=== PATIENT | male | born 1975 | race Caucasian/White ===

== ENCOUNTER 2018-10-28 05:33 | Day surgery (SDC) | payer BC, OTHER ==
[~2018-10-28] VITALS: Ht 182.9 cm; Wt 83.9 kg
--- NOTE | ~2018-10-28 | O ---
[facility] [place] [address] [place] [address] OPERATIVE REPORT Name: AROLDO PIERCE Room #: 150-1 [facility] M.R.#: [id number] Admission: 10/28/18 ������������������ Attend Phys: Darion Root MD Discharge: ������������������ Date of : 71 Report #: [id number] THIS REPORT FOR: //name// CC: Basim Root DATE OF SERVICE: 10/28/[address] Darion Root and Dr. Basim Zavala. PREOPERATIVE DIAGNOSIS: Right inguinal hernia. POSTOPERATIVE DIAGNOSIS: Right inguinal hernia. PROCEDURE: Right inguinal hernia repair with Prolene hernia system mesh. SURGEON: Darion Root MD. ANESTHESIA: Local IV sedation. DESCRIPTION OF PROCEDURE: The patient was brought to the operating room and placed on operative table in the supine position. Sequential compression devices were in place for DVT prophylaxis. The patient underwent IV sedation. The right inguinal area was prepped and draped in a sterile fashion. Skin and subcutaneous tissue were then infiltrated with 0.5% Marcaine and 1% Xylocaine in a 1:1 mixture. Right inguinal skin incision was then performed using #10 scalpel blade. Hemostasis obtained using electrocautery as well as clamps and 2-0 chromic ties. Dissection was carried down through subcutaneous tissue, the external oblique fascia, which was then incised with a knife and opened with the Metzenbaum scissors. The ilioinguinal nerve was identified, dissected free, injected with a local mixture and preserved. Cord was then elevated and held in place with a [employer] drain. Cremasteric muscle fibers were then split in the direction of their fibers using clamp and electrocautery. The indirect inguinal hernia sac was identified, dissected free and reduced back into the preperitoneal space in the internal ring. The floor was inspected and found to be intact. A large Prolene hernia system mesh was then inserted through the internal ring and the preperitoneal mesh was then deployed into the preperitoneal space. Connector was left in the internal ring and the overlay patch was then deployed into the inguinal canal. The mesh was secured at the pubic tubercle superiorly and at the connector using simple interrupted 2-0 Vicryl sutures. The mesh was split and wrapped around the cord, secured to the inguinal ligament with simple interrupted 2-0 Vicryl suture. The cord and ilioinguinal nerve were then returned to the canal intact. The external oblique fascia was then closed using running 2-0 Vicryl suture. Jeff's fascia was then reapproximated using 3 simple interrupted 2-0 chromic sutures and the skin [address] [address] OPERATIVE REPORT Name: STANAROLDO Val Room #: 150-1 [facility] M.R.#: [id number] Admission: 10/28/18 ������������������ Attend Phys: Darion Root MD Discharge: ������������������ Date of : 71 Report #: [id number] then closed with a running 4-0 subcuticular Vicryl stitch. The wound was then dressed with Mastisol, 1/2-inch Steri-Strips cut in half, Telfa, 4 x 4 gauze, sponge and tape. The patient was then taken to the recovery room awake, alert and in good condition. Estimated blood loss was approximately 5 mL and the patient tolerated the procedure well. All sponge, lap and instrument counts correct x 2. ��������������������������������������������� ���������������������������������������� By: ��������������������������������������������� 1356 1414 Darion Root MD /nt
--- NOTE | 2018-10-28 10:45 | H ---
[facility] [place] [place] [address] HISTORY AND PHYSICAL Name: AROLDO PIERCE Room #: 150-1 [facility] M.R.#: [id number] Admission: 10/28/18 ������������������ Attend Phys: Darion Root MD Discharge: ������������������ Date of : 71 Report #: [id number] THIS REPORT FOR: //name// CC: Basim Root DATE OF SERVICE: 10/28/[address] Basim Zavala. CHIEF COMPLAINT: Right groin bulge. HISTORY OF PRESENT ILLNESS: The patient is a 43-year-old white male who a couple of months ago noticed a knot in his right groin. He had not had any significant pain or discomfort. He denied any recent changes in bowel or bladder habits. Dr. Zavala recommend a surgical consultation for possible right inguinal hernia. PAST MEDICAL HISTORY: Left hand injury in 2007. PAST SURGICAL HISTORY: Tonsillectomy in 1992. ALLERGIES: No known drug allergies. FAMILY HISTORY: Noncontributory. SOCIAL HISTORY: , does not smoke, drinks alcohol occasionally, no medications. REVIEW OF SYSTEMS: Pertinent positives as above. Full review of systems as per the electronic medical record as reviewed by myself. PHYSICAL EXAMINATION: GENERAL: Well-developed, well-nourished, white male in no acute distress. VITAL SIGNS: Stable. He is afebrile. HEENT: Sclerae are nonicteric. Mucous membranes moist and pink. NECK: No adenopathy. No thyromegaly. LUNGS: Clear to auscultation bilaterally. Normal excursion. CARDIOVASCULAR: Regular rate and rhythm. No murmurs, S3, S4. No PMI. ABDOMEN: Soft, flat, nontender, no palpable mass, no organomegaly, no hernias. GENITOURINARY: Normal scrotum, phallus and testes. There is a small to moderate partially reducible right inguinal hernia, no left inguinal hernia. EXTREMITIES: No clubbing, cyanosis or edema. NEUROLOGIC: Intact with a clear mental status. [facility] [address] [place] [address] HISTORY AND PHYSICAL Name: STANAROLDO Val Room #: [address] [place] [address] M.R.#: [id number] Admission: 10/28/18 ������������������ Attend Phys: Darion Root MD Discharge: ������������������ Date of : 71 Report #: [id number] IMPRESSION: A 43-year-old white male with a right inguinal hernia. I have fully discussed with the patient the diagnosis, prognosis, treatment options and the risks and benefits of each and he states he understands and agrees with proposed surgery. PLAN: We will perform a right inguinal hernia repair with mesh under local IV sedation as an outpatient at [facility]. The procedure and its risks, benefits and possible complications including use of mesh fully discussed with the patient, he states he understands and agrees proposed surgery. ��������������������������������������������� <ELECTRONICALLY SIGNED> ���������������������������������������� By: Darion Root MD ��������������������������������������������� 10/28/18 1045 [id number] Darion Root MD /babita
[2018-10-28 11:34] VITALS: BP 120/76
[2018-10-28] MEDS ORDERED: NORCO 5-325 TA1 EAC1 PO (12:41)
== END 2018-10-28 14:45 | disposition home or self-care (01) ==
LOC: TBA 05:33 → OR 05:33 → TBA 05:34 → OR 09:13
DX: K40.90 Unilateral inguinal hernia, without obstruction or gangrene, not specified as recurrent (principal); Z98.890 Other specified postprocedural states
CPT/HCPCS: 50010; 50101; 50386; 50417; 52061; 56524; 56526; 56528; 62110; 62900; 70005